=== PATIENT | male | born 1965 | race Caucasian/White ===

== ENCOUNTER 2020-03-03 02:58 | Inpatient (IN) | payer OTHER, SELFPAY ==
[2020-03-03] MEDS ORDERED: Acetaminophen 500 MG TAB ONE (03:14)
[2020-03-03 03:26] LABS: Mean Corpuscular HGB CONC 32.7 g/dL (32.0-36.0); Mean Corpuscular Volume 88.6 fL (78.0-98.0); Platelet Count 237 thou/uL (130-400); RBC Distribution Width 13.1 % (11.5-14.5); Red Blood Cell (RBC) Count 5.54 mill/uL (4.70-6.10); White Blood Cell (WBC) Count 17.7 thou/uL (4.8-10.8)
[2020-03-03] MEDS ORDERED: Sodium Chloride 0.9% 100 ML ONE (03:32)
[2020-03-03] MEDS ORDERED: Azithromycin 500 MG VIAL ONE (03:32)
[2020-03-03] MEDS ORDERED: cefTRIAXone\\ROCEPHIN 2 GM VIAL ONE (03:32)
[2020-03-03 03:46] LABS: ALT (SGPT) 31 U/L (8-55); AST (SGOT) 25 U/L (5-34); Albumin 4.1 g/dL (3.5-5.0); Alkaline Phosphatase 96 U/L (40-110); Anion Gap 15 mmol/L (10-20); BUN (Urea Nitrogen) 11 mg/dL (8.4-25.7); Bilirubin, Total 0.3 mg/dL (0.2-1.2); Calc. Creatinine Clearance 0 mL/min (70-130); Calcium 8.6 mg/dL (7.8-10.44); Carbon Dioxide 24 mmol/L (22-29); Chloride 106 mmol/L (98-107); Estimated GFR-MDRD Greater than 90; Globulin 3.2 g/dL (2.4-3.5); Glucose 106 mg/dL (70-105); Potassium 3.5 mmol/L (3.5-5.1); Protein, Total 7.3 g/dL (6.0-8.3); Sodium 141 mmol/L (136-145)
[2020-03-03 03:48] LABS: Bacteria/HPF None Seen HPF (None Seen); Bilirubin Negative (Negative); Blood, Urine Negative (Negative); Calcium Oxalate Crystals Rare HPF (None Seen); Clarity Clear (Clear); Glucose, Urine (Dipstick) Normal (Negative); Ketone, Urine Negative (Negative); Leukocyte Negative Leu/uL (Negative); Nitrite Negative (Negative); Protein, Urine (Dipstick) 30 mg/dL (Neg-Trace); RBC/HPF 0-3 HPF (0-3); Specific Gravity, Urine 1.028 (1.002-1.036); Squamous Epithelial None Seen HPF (0-3); Urobilinogen Normal mg/dL (Less than 2); WBC/HPF 0-3 HPF (0-3); pH, Urine 5.5 (5.0-9.0)
[2020-03-03 04:15] LABS: Band 10 % (5-11); Eosinophils 1 % (0-10); Lymphocytes 8 % (21-51); MDiff Complete? YES; Monocytes 1 % (0-10); Neutrophil 80 % (42-75); Platelet Morphology Comment Appears Adequate; RBC Morphology Normal
[2020-03-03 04:33] LABS: SARS-CoV-2 NAA Rapid Test Not Detected (NotDetected)
[2020-03-03 06:05] VITALS: BMI 30.1
--- NOTE | 2020-03-03 06:48 | PDOC.HHP ---
Hospitalist HPI - History of Present Illness Fever and shortness of breath History of Present Illness: 54-year-old gentleman with a history of hypertension presented to the emergency department with a complaint of several days of cough shortness of breath and fever. His temperature was up to 103 according to EMS. Patient also reports weakness. He denies any chest pain. He denies any nausea or vomiting. His chest x-ray in the ED demonstrated bilateral infiltrates. CBC shows leukocytosis. Patient meets criteria for sepsis with tachycardia, leukocytosis and fever. His urine analysis no evidence of UTI. COVID-19 test is negative. Initial troponin is negative. Patient is admitted for pneumonia with sepsis. Hospitalist ROS - Review of Systems Other: Patient denied any diarrhea, no abdominal pain, no nausea or vomiting. Except as documented, all other systems reviewed and negative. Hospitalist History - Past Medical History Cardiac: reports: HTN - Past Surgical History Other Surgical History: Patient is a poor historian and not answering questions. Could be due to delirium. - Family History Other Family History: Unable to obtain due to altered mental status. - Social History Drugs: reports: none Living Situation: With Family Other Social History: Unable to obtain full history due to altered mental status. - Exam General - other findings: Somnolent, easily arousable. Eye: PERRL, anicteric sclera ENT: normocephalic atraumatic, no oropharyngeal lesions, moist mucosa Neck: supple, symmetric, no JVD Heart: no murmur, no gallops, no rubs Heart - other findings: Tachycardia Respiratory: no wheezes, rales (Mild bibasilar rales) Gastrointestinal: soft, non-tender, non-distended, normal bowel sounds Extremities: no cyanosis, no edema Skin: normal turgor, no rashes Neurological: cranial nerve grossly intact, no weakness, no focal deficits Musculoskeletal: normal tone, normal strength Psychiatric: somnolent Hospitalist Results - Labs Result Diagrams: 03/03/20 03:11 03/03/20 03:07 Lab results: WBC 17.7 thou/uL (4.8-10.8) H 03/03/20 03:11 Hgb 16.0 g/dL (14.0-18.0) 03/03/20 03:11 Hct 49.1 % (42.0-52.0) 03/03/20 03:11 MCV 88.6 fL (78.0-98.0) 03/03/20 03:11 Plt Count 237 thou/uL (130-400) 03/03/20 03:11 Band Neuts % (Manual) 10 % (5-11) 03/03/20 03:11 Sodium 141 mmol/L (136-145) 03/03/20 03:07 Potassium 3.5 mmol/L (3.5-5.1) 03/03/20 03:07 Chloride 106 mmol/L (98-107) 03/03/20 03:07 Carbon Dioxide 24 mmol/L (22-29) 03/03/20 03:07 BUN 11 mg/dL (8.4-25.7) 03/03/20 03:07 Creatinine 0.78 mg/dL (0.7-1.3) 03/03/20 03:07 Glucose 106 mg/dL (70-105) H 03/03/20 03:07 Lactic Acid 1.7 mmol/L (0.5-2.2) 03/03/20 03:13 Calcium 8.6 mg/dL (7.8-10.44) 03/03/20 03:07 Total Bilirubin 0.3 mg/dL (0.2-1.2) 03/03/20 03:07 AST 25 U/L (5-34) 03/03/20 03:07 ALT 31 U/L (8-55) 03/03/20 03:07 Alkaline Phosphatase 96 U/L (40-110) 03/03/20 03:07 Troponin I 0.022 ng/mL (< 0.028) 03/03/20 03:11 Serum Total Protein 7.3 g/dL (6.0-8.3) 03/03/20 03:07 Albumin 4.1 g/dL (3.5-5.0) 03/03/20 03:07 Urine Ketones Negative mg/dL (Negative) 03/03/20 03:25 Urine Blood Negative (Negative) 03/03/20 03:25 Urine Nitrite Negative (Negative) 03/03/20 03:25 Ur Leukocyte Esterase Negative Matthias/uL (Negative) 03/03/20 03:25 Urine RBC 0-3 HPF (0-3) 03/03/20 03:25 Urine WBC 0-3 HPF (0-3) 03/03/20 03:25 Ur Squamous Epith Cells None Seen HPF (0-3) 03/03/20 03:25 Urine Bacteria None Seen HPF (None Seen) 03/03/20 03:25 - Radiology Interpretation Chest x-ray Status: report reviewed by me (Bilateral infiltrates.) Hospitalist H&P A/P - Problem (1) Sepsis Code(s): A41.9 - SEPSIS, UNSPECIFIED ORGANISM Status: Acute (2) Pneumonia Code(s): J18.9 - PNEUMONIA, UNSPECIFIED ORGANISM Status: Acute (3) Metabolic encephalopathy Code(s): G93.41 - METABOLIC ENCEPHALOPATHY Status: Acute (4) Accelerated hypertension Code(s): I10 - ESSENTIAL (PRIMARY) HYPERTENSION Status: Acute - Plan Plan: Admit to telemetry. Sepsis protocol initiated. Normal lactate. Will treat pneumonia with IV Rocephin and Zithromax. Hydrate with IV normal saline Follow blood cultures. Neurochecks. Labetalol as needed for BP spikes. Hold home hypertensive for now given sepsis.
[2020-03-03] MEDS ORDERED: Labetalol HCl 100 MG/20 ML VIAL SLOW IVP PRN (08:39)
[2020-03-03] MEDS: Sodium Chloride 0.9% 1,000 ML IV SCH ×2 (08:46→16:58)
[2020-03-03] MEDS: Enoxaparin Sodium 40 MG/0.4 ML SYRINGE SC SCH (08:47)
--- NOTE | 2020-03-03 10:43 | PDOC.HOSPP ---
- Subjective Encounter Date: 03/03/20 Encounter Time: 10:40 Subjective: awake but lethargic, sob is better smokes 2 packs/day no alc or drug use was in the process of moving from [place] to [facility] when he got sick - Objective Vital Signs & Weight: Vital Signs (12 hours) Temp Pulse Resp BP Pulse Ox 03/03/20 07:10 98.1 F 77 16 147/81 H 93 L 03/03/20 06:01 98.9 F 94 22 H 171/91 H 93 L Weight Weight 228 lb 8 oz Result Diagrams: 03/03/20 03:11 03/03/20 03:07 Hospitalist ROS - Medication Medications: Active Medications Generic Name Dose Route Start Last Admin Trade Name Freq PRN Reason Stop Dose Admin Enoxaparin Sodium 40 mg 03/03/20 09:00 03/03/20 08:47 Enoxaparin Sodium 40 Mg/0.4 Ml Syringe SC Not Given 0900 MARA Sodium Chloride 1,000 mls @ 100 mls/hr 03/03/20 06:00 03/03/20 08:46 Normal Saline 0.9% IV 03/04/20 06:01 1,000 mls .Q10H MARA Administration - Exam General Appearance: awake alert Eye: PERRL, anicteric sclera ENT: no oropharyngeal lesions, dry oral mucosa Neck: supple, no JVD Heart: RRR, no murmur Respiratory: no rales, rhonchi, wheezes Gastrointestinal: soft, non-tender, non-distended, normal bowel sounds Extremities: no cyanosis, no edema Neurological: cranial nerve grossly intact, no focal deficits Psychiatric: A&O x 3 Hosp A/P (1) Pneumonia Code(s): J18.9 - PNEUMONIA, UNSPECIFIED ORGANISM Status: Acute Qualifiers: Pneumonia type: due to unspecified organism Laterality: bilateral (2) COPD exacerbation Code(s): J44.1 - CHRONIC OBSTRUCTIVE PULMONARY DISEASE W (ACUTE) EXACERBATION Status: Acute (3) Obesity (BMI 30.0-34.9) Code(s): E66.9 - OBESITY, UNSPECIFIED Status: Chronic (4) Tobacco abuse Code(s): Z72.0 - TOBACCO USE Status: Chronic (5) HTN (hypertension) Code(s): I10 - ESSENTIAL (PRIMARY) HYPERTENSION Status: Chronic Qualifiers: Hypertension type: essential hypertension Qualified Code(s): I10 - Essential (primary) hypertension (6) Metabolic encephalopathy Code(s): G93.41 - METABOLIC ENCEPHALOPATHY Status: Resolved - Plan is on duonebs, zithromax, ceftriaxone and steroids hemostable wants nicotine tts PCP is at [facility] encourage po intake iv fluids
--- NOTE | 2020-03-03 11:02 | RAD ---
PORTABLE CHEST: HISTORY: Febrile with weakness. COMPARISON: None. FINDINGS: Heart size is within normal limits. There are patchy bilateral parenchymal lung changes with increas ed interstitial lung markings which have a chronic appearance. IMPRESSION: Patchy bilateral lung changes suspicious for multifocal pneumonia for which COVID would be a consider ation. Some of the increased interstitial markings are probably chronic in nature. Some element of edema is difficult to exclude. Followup chest films would be recommended. POS: OFF
[2020-03-03] MEDS: methylPREDNISolone Sod Succ 40 MG VIAL IVP SCH ×3 (11:45→23:59)
[2020-03-03] MEDS: Nicotine 21 MG PATCH TD SCH ×2 (11:45→12:02)
[2020-03-03] MEDS: Acetaminophen 325 MG TAB PO PRN (16:57)
[2020-03-03] MEDS ORDERED: Labetalol HCl 100 MG/20 ML VIAL ONE (19:49)
[2020-03-03] MEDS: Atenolol 50 MG TAB PO SCH (20:30)
[2020-03-03] MEDS: Gabapentin 300 MG CAP PO SCH (20:31)
[2020-03-04] MEDS: Acetaminophen 325 MG TAB PO PRN ×3 (00:54→21:29)
[2020-03-04] MEDS: cefTRIAXone\\ROCEPHIN 2 GM in Sodium Chloride 0.9% 100 ML IVPB SCH (03:28)
[2020-03-04] MEDS: Sodium Chloride 0.9% 1,000 ML IV SCH (03:28)
[2020-03-04] MEDS: Azithromycin 500 MG in Sodium Chloride 0.9% 250 ML 250 ML IVPB SCH (04:25)
[2020-03-04] MEDS: methylPREDNISolone Sod Succ 40 MG VIAL IVP SCH ×3 (05:42→19:15)
[2020-03-04] MEDS: Gabapentin 300 MG CAP PO SCH ×2 (08:40→21:27)
[2020-03-04] MEDS: Amlodipine 10 MG TAB PO SCH (08:40)
[2020-03-04] MEDS: Lorazepam 1 MG TAB PO SCH (08:41)
[2020-03-04] MEDS: Enoxaparin Sodium 40 MG/0.4 ML SYRINGE SC SCH (08:41)
[2020-03-04] MEDS ORDERED: FLU VACC QS2020-21(6MOS UP)/PF 60 MCG/0.5 ML SYRINGE IM ONE (09:00)
[2020-03-04] MEDS: Nicotine 21 MG PATCH TD SCH (14:05)
--- NOTE | 2020-03-04 14:42 | DIS ---
DATE OF ADMISSION: 03/03/2020 DATE OF DISCHARGE: 03/04/2020 DISCHARGE DISPOSITION: Home. PRIMARY DISCHARGE DIAGNOSES: Community-acquired pneumonia; chronic obstructive pulmonary disease exacerbation with ongoing tobacco abuse; obesity; hypertension; initial metabolic encephalopathy, resolved. PROCEDURES DONE DURING HOSPITALIZATION: Chest x-ray done on the day of admission showed bilateral infiltrates with suspicion for multifocal pneumonia. Blood cultures x2, no growth. White count of 17 on admission. H and H 16 and 49, platelet count 237, BUN 11, creatinine 0.7. COVID-19 PCR was not detected on 03/03/2020. DISCHARGE PLAN: The patient to follow up with his primary care physician in [facility] in a week. DISCHARGE MEDICATIONS: 1. Omnicef 300 mg p.o. twice daily for another 5 days. 2. Prednisone tapering dose to be completed in 5 days as prescribed. 3. Albuterol inhaler q.6 hourly p.r.n. 4. Norvasc 10 mg p.o. daily. 5. Atenolol 100 mg p.o. daily. 6. Lorazepam 1 mg p.o. daily p.r.n. for anxiety. 7. Gabapentin 600 mg twice daily p.r.n. ALLERGIES: NO KNOWN DRUG ALLERGIES. BRIEF COURSE DURING HOSPITALIZATION: The patient initially came to ER with complaints of shortness of breath, fever. He was found to have had a temperature of 103 when EMS went to check on him. The patient was in the process of moving from [place], [place] to [place] in a [employer] when he developed these symptoms. His COVID-19 PCR was negative. The patient was placed on broad-spectrum antibiotics for multifocal pneumonia along with COPD exacerbation. The patient smokes nearly two packs a day and was trying to cut down on it. He was also initially confused and had acute metabolic encephalopathy secondary to above. This has completely cleared up in 24 hours. He is hemodynamically stable, ambulating and is off oxygen at the time of discharge. The patient initially had acute respiratory failure with hypoxia secondary to COPD exacerbation and pneumonia, which has resolved. He was counseled with regard to complete cessation of tobacco. The patient needs to take all his prescriptions as prescribed. He apparently has a long-acting bronchodilator with steroid and albuterol inhaler at home. He has been advised to continue the same as before. He has to find a new primary care physician and see them in a week. Please note, I have seen and examined the patient on the day of discharge. Job ID: [id number]
[2020-03-04] MEDS: Atenolol 50 MG TAB PO SCH (21:27)
[2020-03-05] MEDS: methylPREDNISolone Sod Succ 40 MG VIAL IVP SCH ×4 (01:00→18:11)
[2020-03-05] MEDS: cefTRIAXone\\ROCEPHIN 2 GM in Sodium Chloride 0.9% 100 ML IVPB SCH (03:24)
[2020-03-05] MEDS: Azithromycin 500 MG in Sodium Chloride 0.9% 250 ML 250 ML IVPB SCH (04:15)
[2020-03-05] MEDS: Gabapentin 300 MG CAP PO SCH ×2 (09:29→20:06)
[2020-03-05] MEDS: Amlodipine 10 MG TAB PO SCH (09:30)
[2020-03-05] MEDS: Enoxaparin Sodium 40 MG/0.4 ML SYRINGE SC SCH ×2 (09:30→09:31)
[2020-03-05] MEDS: Lorazepam 1 MG TAB PO SCH (09:30)
[2020-03-05] MEDS: Nicotine 21 MG PATCH TD SCH (13:14)
--- NOTE | 2020-03-05 13:18 | PDOC.HOSPP ---
- Subjective Encounter Date: 03/05/20 Encounter Time: 10:00 Subjective: no complaints feels better - Objective Vital Signs & Weight: Vital Signs (12 hours) Temp Pulse Resp BP BP Pulse Ox 03/05/20 09:30 74 168/85 H 03/05/20 08:00 96 03/05/20 07:56 74 16 96 03/05/20 07:31 98.0 F 75 16 168/85 H 93 L 03/05/20 05:29 96 Weight Weight 228 lb 8 oz Result Diagrams: 03/03/20 03:11 03/03/20 03:07 Additional Labs: Accuchecks 03/04/20 16:44 POC Glucose 153 H Hospitalist ROS - Medication Medications: Active Medications Generic Name Dose Route Start Last Admin Trade Name Freq PRN Reason Stop Dose Admin Acetaminophen 650 mg 03/03/20 16:33 03/04/20 21:29 Acetaminophen 325 Mg Tab PO 650 mg Q6H PRN Administration Headache/Fever or Pain Albuterol/Ipratropium 3 ml 03/03/20 13:00 03/05/20 07:56 Ipratropium/Albuterol Sulfate 3 Ml Neb NEB 3 ml Q8ID-FH MARA Administration Amlodipine Besylate 10 mg 03/04/20 09:00 03/05/20 09:30 Amlodipine 10 Mg Tab PO 10 mg DAILY MARA Administration Atenolol 100 mg 03/03/20 21:00 03/04/20 21:27 Atenolol 50 Mg Tab PO 100 mg HS MARA Administration Enoxaparin Sodium 40 mg 03/03/20 09:00 03/05/20 09:31 Enoxaparin Sodium 40 Mg/0.4 Ml Syringe SC Not Given 09 MARA Gabapentin 600 mg 03/03/20 21:00 03/05/20 09:29 Gabapentin 300 Mg Cap PO 600 mg BID MARA Administration Ceftriaxone Sodium 2 gm/ 100 mls @ 200 mls/hr 03/04/20 04:00 03/05/20 03:24 Sodium Chloride IVPB 100 mls Q24HR MARA Administration Azithromycin 500 mg/ Sodium 250 mls @ 250 mls/hr 03/04/20 05:00 03/05/20 04:15 Chloride IVPB 250 mls Q24HR MARA Administration Lorazepam 1 mg 03/04/20 09:00 03/05/20 09:30 Lorazepam 1 Mg Tab PO 1 mg DAILY MARA Administration Methylprednisolone Sodium Succinate 40 mg 03/03/20 12:00 03/05/20 13:14 Methylprednisolone Sod Succ 40 Mg Vial IVP 40 mg Q6HR MARA Administration Nicotine 21 mg 03/03/20 12:00 03/05/20 13:14 Nicotine 21 Mg Patch TD 21 mg Q24HR MARA Administration - Exam General Appearance: awake alert Eye: PERRL, anicteric sclera ENT: no oropharyngeal lesions, moist mucosa Neck: supple, no JVD Heart: RRR, no murmur Respiratory: no wheezes, no rales, rhonchi Gastrointestinal: soft, non-tender, non-distended, normal bowel sounds Extremities: no cyanosis, no edema Neurological: cranial nerve grossly intact, no focal deficits Psychiatric: normal affect, A&O x 3 Hosp A/P (1) Pneumonia Code(s): J18.9 - PNEUMONIA, UNSPECIFIED ORGANISM Status: Acute Qualifiers: Pneumonia type: due to unspecified organism Laterality: bilateral (2) COPD exacerbation Code(s): J44.1 - CHRONIC OBSTRUCTIVE PULMONARY DISEASE W (ACUTE) EXACERBATION Status: Acute (3) Obesity (BMI 30.0-34.9) Code(s): E66.9 - OBESITY, UNSPECIFIED Status: Chronic (4) Tobacco abuse Code(s): Z72.0 - TOBACCO USE Status: Chronic (5) HTN (hypertension) Code(s): I10 - ESSENTIAL (PRIMARY) HYPERTENSION Status: Chronic Qualifiers: Hypertension type: essential hypertension Qualified Code(s): I10 - E ssential (primary) hypertension (6) Metabolic encephalopathy Code(s): G93.41 - METABOLIC ENCEPHALOPATHY Status: Resolved - Plan is on duonebs, omnicef and steroids hemostable nicotine tts PCP is at [facility] may dc anytime
[2020-03-05] MEDS: Atenolol 50 MG TAB PO SCH (20:03)
[2020-03-05] MEDS: Acetaminophen 325 MG TAB PO PRN (20:06)
[2020-03-06] MEDS: methylPREDNISolone Sod Succ 40 MG VIAL IVP SCH ×2 (00:30→05:28)
[2020-03-06] MEDS: Acetaminophen 325 MG TAB PO PRN (01:29)
[2020-03-06] MEDS: cefTRIAXone\\ROCEPHIN 2 GM in Sodium Chloride 0.9% 100 ML IVPB SCH (04:35)
[2020-03-06] MEDS: Azithromycin 500 MG in Sodium Chloride 0.9% 250 ML 250 ML IVPB SCH (04:44)
[2020-03-06 07:54] VITALS: TEMP 97.8
[2020-03-06 07:56] VITALS: BP 159/94
[2020-03-06] MEDS: Gabapentin 300 MG CAP PO SCH (08:42)
[2020-03-06] MEDS: Enoxaparin Sodium 40 MG/0.4 ML SYRINGE SC SCH (08:43)
[2020-03-06] MEDS: Amlodipine 10 MG TAB PO SCH (08:43)
[2020-03-06] MEDS: Lorazepam 1 MG TAB PO SCH (08:43)
--- NOTE | 2020-03-06 15:22 | DIS ---
DATE OF ADMISSION: 03/03/2020 DATE OF DISCHARGE: 03/06/2020 Please see my discharge summary dictated on 03/04/2020. The patient remained in-house as he had nowhere to go as his did not want to take him home. They were in the process of separation. Finally, Case Management was able to trace his family and this was difficult as the patient did not carry his cellphone with him. His family is finally agreed to pick him up this morning. He will be shortly discharged to home. Job ID: [id number]
== END 2020-03-06 09:54 | disposition home or self-care (01) | DRG 871 ==
LOC: ERS 02:58 → T4-B 04:39
PROVIDERS: ADMIT Internal Medicine; ATTEND Internal Medicine
DX: A41.9 Sepsis, unspecified organism (principal); J18.9 Pneumonia, unspecified organism; G93.41 Metabolic encephalopathy; J96.01 Acute respiratory failure with hypoxia; J44.1 Chronic obstructive pulmonary disease with (acute) exacerbation; J44.0 Chronic obstructive pulmonary disease with (acute) lower respiratory infection; R65.20 Severe sepsis without septic shock; F17.210 Nicotine dependence, cigarettes, uncomplicated; E66.9 Obesity, unspecified; I10 Essential (primary) hypertension; Z20.828 Contact with and (suspected) exposure to other viral communicable diseases; Z79.899 Other long term (current) drug therapy; Z68.30 Body mass index [BMI] 30.0-30.9, adult
CPT/HCPCS: 36415; 36416; 71045; 80053; 81003; 81015; 83605; 84484; 85025; 87040; 93005; 94640; 96365; 96367; J0456; J0696; J1650; J2920; J3490; J7050; J7620; U0002